=== PATIENT | male | born 1980 | race Caucasian/White ===

== ENCOUNTER 2020-12-01 01:42 | Emergency (ER) | payer OTHER ==
[~2020-12-01] VITALS: Ht 188 cm; Wt 122.0 kg
[2020-12-01] MEDS ORDERED: CARI350T PO (03:42)
[2020-12-01] MEDS ORDERED: OXYCODONE (03:44)
[2020-12-01] MEDS ORDERED: OXYC1TAB15 PO (03:44)
[2020-12-01] MEDS ORDERED: LEXAPRO20 MG PO (03:45)
[2020-12-01] MEDS ORDERED: GABA800T5 PO (03:45)
[2020-12-01] MEDS ORDERED: CLON2TAB9 PO (03:46)
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
[2020-12-01] MEDS ORDERED: IV NORMAL SALINE 1000ML BAG 1,000 ML IV ONE (04:30)
[2020-12-01] MEDS ORDERED: HYDROmorphone 2 MG/ML VIAL IVP ONE ×3 (04:30→11:45)
[2020-12-01 04:35] LABS: BASO # 0.1 x10^3/uL (0.0-0.2); BASO % 1 % (0-3); EOS # 0.1 x10^3/uL (0.0-0.7); EOS % 3 % (0-3); HEMATOCRIT 39.2 % (39.0-53.0); HEMOGLOBIN 13.3 g/dL (13.0-17.5); LYMPH # 1.6 x10^3/uL (1.0-4.8); LYMPH % 28 % (24-48); MEAN CORPUSCULAR HEMOGLOBIN 30 pg (25-35); MEAN CORPUSCULAR HGB CONC 34 g/dL (31-37); MEAN CORPUSCULAR VOLUME 87 fL (79-100); MONO # 0.5 x10^3/uL (0.0-1.1); MONO % 9 % (0-9); NEUT # 3.3 x10^3/uL (1.8-7.7); NEUT % 59 % (31-73); PLATELET COUNT 272 x10^3/uL (140-400); RED BLOOD COUNT 4.51 x10^6/uL (4.30-5.70); RED CELL DISTRIBUTION WIDTH 14.4 % (11.5-14.5); WHITE BLOOD COUNT 5.6 x10^3/uL (4.0-11.0)
[2020-12-01 04:50] LABS: CALCIUM 8.9 mg/dL (8.5-10.1); CREATININE 0.9 mg/dL (0.7-1.3); GFR 94.4; POTASSIUM 3.9 mmol/L (3.5-5.1)
[2020-12-01 04:56] LABS: ALBUMIN 3.7 g/dL (3.4-5.0); ALBUMIN/GLOBULIN RATIO 1.3 (1.0-1.7); C-REACTIVE PROTEIN 2.2 mg/L (0-3.3); TOTAL BILIRUBIN 0.4 mg/dL (0.2-1.0); TOTAL PROTEIN 6.6 g/dL (6.4-8.2)
--- NOTE | 2020-12-01 04:58 | RAD ---
EXAMINATION: CT LUMBAR SPINE WO INDICATION:40 years, Male, previous fracture, repeat falls and weakness. COMPARISON: None. TECHNIQUE: CT imaging of the lumbar spine was performed without contrast. Coronal and sagittal refor matted images were performed. One or more of the following dose reduction techniques were utilized: A utomated exposure control (AEC), Adjustment of mA and/or kV according to patient size, Use of iterati ve reconstruction technique such as ASiR, CT scan done according to ALARA and image gently/image garcia ly. FINDINGS: For counting purposes, there is lumbarization S1. The lumbar spine is normally aligned. No acute frac ture. Chronic appearing mild compression fracture of the superior endplate of L2 vertebral body with sclerosis. The remaining vertebral body heights are maintained without compression deformity. The int ervertebral disc spaces are normal. Anterior osteophytes. Mild multilevel facet arthropathy, worst at L4-5 and L5-S1. No aggressive lytic or blastic osseous lesion. No significant spinal canal stenosis. There is a mild to moderate bilateral neural narrowing at L5-S1. Cholecystectomy. IMPRESSION: 1. No acute osseous abnormality of the thoracic spine. 2. Chronic appearing mild compression fracture of the superior endplate of L2 vertebral body. 3. Mild bilateral facet arthropathy at L4-5 and L5-S1. Mild to moderate bilateral neuroforaminal narr owing at L5-S1. Electronically signed by: Riley Lee MD (12/01/2020 4:55 AM) [facility]
[2020-12-01] MEDS ORDERED: diphenhydrAMINE 50 MG/ML VIAL IVP ONE ×2 (05:30→10:45)
[2020-12-01] MEDS ORDERED: KETOROLAC 15 MG/ML VIAL. IVP ONE ×2 (05:30→10:45)
--- NOTE | 2020-12-01 05:54 | RAD ---
EXAMINATION: CT cervical spine without IV contrast INDICATION:40 years, Male, fall, previous fracture. COMPARISON: None TECHNIQUE: CT of the cervical spine was obtained using contiguous spiral imaging from the skull base to the upper thoracic level. Sagittal and coronal 2D reformatted series were provided by the [facility]. Soft tissue and bone window algorithms were reviewed. Exposure: One or more of the following individualized dose reduction techniques were utilized for thi s examination: 1. Automated exposure control 2. Adjustment of the mA and/or kV according to patient size 3. Use of iterative reconstruction technique. FINDINGS: Anatomic alignment of the cervical spine is maintained. Neither fracture, subluxation, nor traumatic spondylolisthesis is seen. 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 The vertebral b eduardo heights and intervertebral disk spaces are preserved. No significant canal stenosis or neuroforam inal narrowing. There is no evidence of a large intraspinal hematoma. The prevertebral and paraverteb ral soft tissues are within normal limits. IMPRESSION: No evidence of fracture or traumatic spondylolisthesis of the cervical spine. Electronically signed by: Riley Lee MD (12/01/2020 5:52 AM) [facility]
--- NOTE | 2020-12-01 05:57 | RAD ---
EXAMINATION: CT THORACIC SPINE WO INDICATION:40 years, Male, fall. COMPARISON: None. TECHNIQUE: CT imaging of the thoracic spine was performed without contrast. Coronal and sagittal ref ormatted images were performed. One or more of the following dose reduction techniques were utilized: Automated exposure control (AEC), Adjustment of mA and/or kV according to patient size, Use of itera tive reconstruction technique such as ASiR, CT scan done according to ALARA and image gently/image wi sely. FINDINGS: The thoracic spine is normally aligned. No acute fracture. Vertebral body heights are maintained with out compression deformity. The intervertebral disc spaces are normal. No aggressive lytic or blastic osseous lesion. No significant spinal canal stenosis or neural foraminal narrowing. The visualized lungs are clear. No pleural effusion. The visualized thoracic aorta is normal caliber. IMPRESSION: No acute osseous abnormality of the thoracic spine. Electronically signed by: Riley Lee MD (12/01/2020 5:55 AM) [facility]
[2020-12-01] MEDS ORDERED: KETAMINE HCL 500 MG/10 ML VIAL. IV ONE (10:45)
--- NOTE | 2020-12-01 12:24 | RAD ---
MR LUMBAR SPINE WO -[id number] Date: 12/01/2020 10:29 AM Indication: lower extremity weakness, incontinenence Comparison: CT lumbar spine 12/01/2020. Technique: Multi-planar multi-weighted magnetic resonance imaging of the lumbar spine was performed w ithout intravenous contrast using the standard lumbar spine protocol. FINDINGS: Transitional anatomy at the lumbosacral junction with the inferior most squared vertebral body design ated a lumbarized S1 vertebra. Vertebral body numbering done in concordance with prior CT L-spine rep ort of 12/01/2020. L2 compression deformity with 15 percent loss of vertebral body height. Edema and fracture cleft deepak g the superior endplate. No osseous retropulsion. The lumbar spine is normally aligned. Degenerative disc desiccation at T11-12. No marrow replacing pr ocess to suggest malignancy. The conus terminates at a normal level. No abnormal signal is seen within the visualized distal spina l cord. No clumping of intrathecal nerve roots. No soft tissue abnormality in the visualized abdomen or pelvis. No significant spinal stenosis or neural foraminal narrowing. IMPRESSION: 1. No spinal canal stenosis. 2. Acute to subacute L2 compression deformity with 15 percent height loss. No osseous retropulsion. 3. Transitional lumbosacral anatomy with vertebral body numbering as detailed above. Electronically signed by: Lon Aly MD (12/01/2020 12:22 PM) [id number]
--- NOTE | 2020-12-01 13:16 | RAD ---
MRI THORACIC SPINE WO 12/01/2020 10:29 AM INDICATION: Lower extremity weakness, incontinence COMPARISON: None available. TECHNIQUE: Multiplanar, multisequence MR imaging of the thoracic spine was performed without gadolin ium based contrast. FINDINGS: Alignment of the thoracic spine is normal. Vertebral body heights are maintained. Marrow signal inten sity is normal in all sequences. There is no acute fracture. Thoracic spinal cord signal intensity is normal in all sequences. Left central disc extrusions are identified at T2-T3 and T3-T4 without sign ificant neuroforaminal or spinal canal stenosis. At T7-T8 there is a right central disc protrusion wi thout significant neuroforaminal or spinal canal stenosis. At T8-T9 is a right central disc extrusion with mild right neuroforaminal stenosis. At T9-T10, there is a circumferential disc bulge. Mild face t arthropathy. Mild to moderate right neuroforaminal stenosis. No significant spinal canal stenosis o r compression of the cord. Thoracic aorta is normal in caliber. No suspicious pulmonary abnormality. Bibasilar subsegmental atel ectasis. Upper abdomen is normal in appearance. IMPRESSION: Mild thoracic spondylosis. No acute fracture or marrow edema. No significant neuroforaminal or spinal canal stenosis as detailed above. Electronically signed by: Casandra Blanton MD (12/01/2020 1:14 PM) [id number]
[2020-12-01 15:00] VITALS: BP 118/64
== END 2020-12-01 15:30 | disposition left against medical advice (07) ==
LOC: ER 01:42
DX: M54.5 Low back pain (principal); R20.2 Paresthesia of skin; M54.6 Pain in thoracic spine; R53.1 Weakness; M54.2 Cervicalgia; Z90.89 Acquired absence of other organs; Z90.49 Acquired absence of other specified parts of digestive tract
CPT/HCPCS: 36415; 72125; 72128; 72131; 72146; 72148; 80053; 85025; 85651; 86140; 96361; 96374; 96375; 96376; 99285; J1170; J1200; J1885; J3490; J7030